=== PATIENT | female | born 1980 | race Two or more races ===

== ENCOUNTER 2018-06-09 20:21 | Observation (INO) | payer OTHER ==
[~2018-06-09] VITALS: Ht 162.6 cm; Wt 68.0 kg
[2018-06-09 21:20] LABS: BILIRUBIN,URINE NEGATIVE (NEG); CLARITY,URINE CLEAR; COLOR,URINE YELLOW; NITRITE,URINE NEGATIVE (NEG); PH,URINE 5.5; PROTEIN,URINE NEGATIVE (NEG-TRACE); UROBILINOGEN,URINE 0.2 mg/dL (0.2 mg/dL)
[2018-06-09 21:36] LABS: BASO % 0 % (0-3); EOS # 0.1 x10^3/uL (0.0-0.7); EOS % 2 % (0-3); HEMATOCRIT 38.4 % (36.0-47.0); HEMOGLOBIN 13.3 g/dL (12.0-15.5); LYMPH # 1.9 x10^3/uL (1.0-4.8); LYMPH % 24 % (24-48); MEAN CORPUSCULAR HEMOGLOBIN 28 pg (25-35); MEAN CORPUSCULAR HGB CONC 35 g/dL (31-37); MEAN CORPUSCULAR VOLUME 80 fL (79-100); MONO # 0.4 x10^3/uL (0.0-1.1); MONO % 5 % (0-9); NEUT # 5.6 x10^3uL (1.8-7.7); NEUT % 69 % (31-73); PLATELET COUNT 212 x10^3/uL (140-400); RED BLOOD COUNT 4.78 x10^6/uL (3.50-5.40); RED CELL DISTRIBUTION WIDTH 13.3 % (11.5-14.5); WHITE BLOOD COUNT 8.1 x10^3/uL (4.0-11.0)
--- NOTE | 2018-06-09 21:36 | PHYS DOC ---
Past Medical History Past Medical History: Hypertension Past Surgical History: Alcohol Use: None Drug Use: None Adult General Chief Complaint Chief Complaint: VAGINAL BLEEDING HPI HPI Patient is a 37 year old female who presents accompanied by with lower abd pain and vaginal bleeding. The patient reports her LMP was around May 18 and they normally run regularly every 26-28 days. She notes that around 3 weeks ago she began to have some dark brown vaginal spotting which she noticed after wiping following urination. Yesterday morning she began to experience lower/suprapubic abd pain which has been worsening since onset. She has not taken any pain medication. The patient contacted her PCP this AM who ordered a B-HCG and transvaginal ultrasounds. The HCG was noted to be positive and the Ultrasound impression performed at an outside facility noted: 1. No sonographic evidence of intrauterine gestation and 2. Possible right sided ectopic . Two findings are present in either one of these could be considered for an ectopic including a complex solid appearing masslike structure in the R adnexa/cul de sac measuring 3 cm and a thick walled 1.9 cm cyst with moderate ringlike peripheral blood flow in the ovary. Consider short interval follow up US evaluation and correlation with quant B-hcg analysis. Following the results of this testing she was referred to the ED. The patient does have a hx of ectopic around 10 years ago that was treated with Methotrexate, she is unsure of the side or the cause of the ectopic. 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 She denies nausea, vomiting, and SOB. No other Sx at this time. Interestingly she is from [place] and she came here in 2012. Review of Systems Review of Systems Constitutional: Denies fever or chills [] Eyes: Denies change in visual acuity, redness, or eye pain [] HENT: Denies nasal congestion or sore throat [] Respiratory: Denies cough or shortness of breath [] Cardiovascular: No additional information not addressed in HPI [] GI: + lower abd pain. Denies nausea, vomiting, bloody stools or diarrhea [] : + vaginal bleeding. Denies dysuria Musculoskeletal: Denies back pain or joint pain [] Integument: Denies rash or skin lesions [] Neurologic: Denies headache, focal weakness or sensory changes [] Endocrine: Denies polyuria or polydipsia [] All other systems were reviewed and found to be within normal limits, except as documented in this note. Current Medications Current Medications Current Medications Medications (Trade) Dose Ordered Sig/Benitez Start Time Stop Time Status Last Admin Dose Admin Methotrexate 88 mg 1X ONCE 06/09/18 23:00 06/09/18 23:01 UNV Allergies Allergies Allergies Coded Allergies Type Severity Reaction Last Updated Verified No Known Drug Allergies 06/09/18 No Physical Exam Physical Exam Constitutional: Well developed, well nourished, no acute distress, non-toxic appearance. [] HENT: Normocephalic, atraumatic, bilateral external ears normal, oropharynx moist, no oral exudates, nose normal. [] Eyes: PERRLA, EOMI, conjunctiva normal, no discharge. [] Neck: Normal range of motion, no tenderness, supple, no stridor. [] Cardiovascular:Heart rate regular rhythm, no murmur [] Lungs & Thorax: Bilateral breath sounds clear to auscultation [] Abdomen: + lower abd TTP, no rebound, rigidity or guarding. Bowel sounds normal , soft, no masses, no pulsatile masses. [] Skin: Warm, dry, no erythema, no rash. [] Back: No tenderness, no CVA tenderness. [] Extremities: No tenderness, no cyanosis, no clubbing, ROM intact, no edema. [] Neurologic: Alert and oriented X 3, normal motor function, normal sensory function, no focal deficits noted. [] Psychologic: Affect normal, judgement normal, mood normal. [] Current Patient Data Vital Signs Vital Signs Date Time Temp Pulse Resp B/P (MAP) Pulse Ox O2 Delivery O2 Flow Rate FiO2 06/09/18 20:45 98.0 93 19 133/78 (96) 100 Room Air 98.0 Lab Values Laboratory Tests Test 06/09/18 20:45 06/09/18 20:49 06/09/18 21:25 Urine Collection Type Void Urine Color Yellow Urine Clarity Clear Urine pH 5.5 Urine Specific [place] 1.015 Urine Protein Negative mg/dL (NEG-TRACE) Urine Glucose (UA) Negative mg/dL (NEG) Urine Ketones (Stick) Trace mg/dL (NEG) Urine Blood Large (NEG) Urine Nitrite Negative (NEG) Urine Bilirubin Negative (NEG) Urine Urobilinogen Dipstick 0.2 mg/dL (0.2 mg/dL) Urine Leukocyte Esterase Negative (NEG) Urine RBC Occ /HPF (0-2) Urine WBC 0 /HPF (0-4) Urine Squamous Epithelial Cells Few /LPF Urine Bacteria Moderate /HPF (0-FEW) POC Urine HCG, Qualitative Hcg positive (Negative) White Blood Count 8.1 x10^3/uL (4.0-11.0) Red Blood Count 4.78 x10^6/uL (3.50-5.40) Hemoglobin 13.3 g/dL (12.0-15.5) Hematocrit 38.4 % (36.0-47.0) Mean Corpuscular Volume 80 fL (79-100) Mean Corpuscular Hemoglobin 28 pg (25-35) Mean Corpuscular Hemoglobin Concent 35 g/dL (31-37) Red Cell Distribution Width 13.3 % (11.5-14.5) Platelet Count 212 x10^3/uL (140-400) Neutrophils (%) (Auto) 69 % (31-73) Lymphocytes (%) (Auto) 24 % (24-48) Monocytes (%) (Auto) 5 % (0-9) Eosinophils (%) (Auto) 2 % (0-3) Basophils (%) (Auto) 0 % (0-3) Neutrophils # (Auto) 5.6 x10^3uL (1.8-7.7) Lymphocytes # (Auto) 1.9 x10^3/uL (1.0-4.8) Monocytes # (Auto) 0.4 x10^3/uL (0.0-1.1) Eosinophils # (Auto) 0.1 x10^3/uL (0.0-0.7) Basophils # (Auto) 0.0 x10^3/uL (0.0-0.2) Prothrombin Time 13.5 SEC (11.7-14.0) Prothrombin Time INR 1.1 (0.8-1.1) Maternal Serum HCG Beta Subunit 2543 mIU/mL (0-5) H Sodium Level 140 mmol/L (136-145) Potassium Level 3.0 mmol/L (3.5-5.1) L Chloride Level 101 mmol/L (98-107) Carbon Dioxide Level 28 mmol/L (21-32) Anion Gap 11 (6-14) Blood Urea Nitrogen 12 mg/dL (7-20) Creatinine 0.6 mg/dL (0.6-1.0) Estimated GFR (Cockcroft-Gault) 111.9 BUN/Creatinine Ratio 20 (6-20) Glucose Level 146 mg/dL (70-99) H Calcium Level 9.6 mg/dL (8.5-10.1) Total Bilirubin 0.4 mg/dL (0.2-1.0) Aspartate Amino Transferase (AST) 14 U/L (15-37) L Alanine Aminotransferase (ALT) 23 U/L (14-59) Alkaline Phosphatase 59 U/L (46-116) Total Protein 7.9 g/dL (6.4-8.2) Albumin 4.0 g/dL (3.4-5.0) Albumin/Globulin Ratio 1.0 (1.0-1.7) Laboratory Tests 06/09/18 21:25 Laboratory Tests 06/09/18 21:25 EKG EKG [] Radiology/Procedures Radiology/Procedures US Pelvis done at outside facility DONE TODAY 06/09 1. No sonographic evidence of intrauterine gestation 2. Possible right sided ectopic . Two findings are present in either one of these could be considered for an ectopic including a complex solid appearing masslike structure in the R adnexa/cul de sac measuring 3 cm and a thick walled 1.9 cm cyst with moderate ringlike peripheral blood flow in the ovary. Consider short interval follow up US evaluation and correlation with quant B-hcg analysis.` ULTRASOUND DONE HERE Findings: Transvaginal pelvic ultrasound exam was performed. Transabdominal imaging was also performed. Transvaginal technique was utilized to better assess the adnexal structures. Uterus measures 9.7 cm x 5.16 x 4.7 cm. Myometrium is unremarkable. Cervical length is 4.4 cm. No intrauterine gestational sac identified. Complex pelvic free fluid is present. Right adnexa measures 1.17 x 1.3 cm x 2 cm. Right adnexal follicle measuring 0.7 cm diameter is present. Normal right ovarian flow is evident on color Doppler imaging. There is a complex heterogeneously hyperechoic mass medial to the right ovary measuring 4.9 x 2.5 cm x 3.1 cm. Left ovary measures 2.2 cm x 2.5 cm x 1.4 cm. Impression: Right adnexal region complex mass. Ectopic gestation is of concern as no intrauterine gestation is identified. Associated complex pelvic free fluid. Electronically signed by: García Choudhary MD (06/09/2018 10:32 PM) [facility] DICTATED and SIGNED BY: REILLY CAMARGO MD DATE: 06/09/182225 Course & Med Decision Making Course & Med Decision Making Pertinent Labs and Imaging studies reviewed. (See chart for details) Assessment: 37 y/o female presents with lower abd pain and vaginal spotting 1. ectopic Plan labs UA B-HCG repeat Pelvic US Blood type consult [employer] I discussed with Dr. Ash at 11 PM we reviewed the case specifically reviewed the beta hCG number of the vital signs reviewed in detail the pelvic ultrasound findings including the size as well as the pelvic free fluid however no other abdominal fluid is identified clinically or on ultrasound. Dr. Ash feels that the patient is a candidate for methotrexate. We agree we will admit the patient overnight to his service for observation. I discussed in detail with the patient the risks and benefits of methotrexate and she does consent to in fact she did strongly prefer methotrexate as she had a good outcome with it last time. Patient is comfortable with the plan. Hemoglobin normal Rh+. Admit for observation. Methotrexate was ordered in the emergency room 50 mg/m and I called the pharmacist to confirm the dose. Dragon Disclaimer Dragon Disclaimer This electronic medical record was generated, in whole or in part, using a voice recognition dictation system. Departure Departure Impression: Primary Impression: Ectopic Disposition: ADMITTED INPATIENT Admitting Physician: Other Condition: STABLE Referrals: ANIL SALDANA (PCP) JALEESA ROSE MD Jun 09, 2018 21:36
[2018-06-09 21:37] LABS: BACTERIA,URINE MODERATE /HPF (0-FEW); RBC,URINE OCC /HPF (0-2); SQUAMOUS EPITHELIAL CELL,UR FEW /LPF; WBC,URINE 0 /HPF (0-4)
[2018-06-09 21:42] LABS: CALCIUM 9.6 mg/dL (8.5-10.1); CREATININE 0.6 mg/dL (0.6-1.0); GFR 111.9
[2018-06-09 21:44] LABS: PROTHROMBIN TIME PATIENT 13.5 SEC (11.7-14.0)
[2018-06-09 21:48] LABS: TOTAL BILIRUBIN 0.4 mg/dL (0.2-1.0); TOTAL PROTEIN 7.9 g/dL (6.4-8.2)
--- NOTE | 2018-06-09 22:35 | RAD ---
Examination: OB <14 WKS W/TV History: pain, spotting, pos urine preg test
prev ectopic

no iup or gs seen
complex ff
med to ro solid mass with blood flow suspicious for ectopic
beta not back yet Comparison/Correlation: None Findings: Transvaginal pelvic ultrasound exam was performed. Transabdominal imaging was also performed. Transvaginal technique was utilized to better assess the adnexal structures. Uterus measures 9.7 cm x 5.16 x 4.7 cm. Myometrium is unremarkable. Cervical length is 4.4 cm. No intrauterine gestational sac identified. Complex pelvic free fluid is present. Right adnexa measures 1.17 x 1.3 cm x 2 cm. Right adnexal follicle measuring 0.7 cm diameter is present. Normal right ovarian flow is evident on color Doppler imaging. There is a complex heterogeneously hyperechoic mass medial to the right ovary measuring 4.9 x 2.5 cm x 3.1 cm. Left ovary measures 2.2 cm x 2.5 cm x 1.4 cm. Impression: Right adnexal region complex mass. Ectopic gestation is of concern as no intrauterine gestation is identified. Associated complex pelvic free fluid. Electronically signed by: García Choudhary MD (06/09/2018 10:32 PM) [facility]
[2018-06-09] MEDS: MORPHINE SULFATE 4 MG/ML VIAL. IV PRN (23:16)
[2018-06-09] MEDS: ONDANSETRON PF 4 MG/2 ML VIAL. IV PRN (23:16)
[2018-06-09] MEDS ORDERED: METHOTREXATE SODIUM 50 MG/2 ML VIAL IM ONE (23:45)
[2018-06-10] MEDS ORDERED: IV RINGERS,LACTATED 1000ML 1,000 ML IV SCH (00:30)
[2018-06-10 00:34] VITALS: BP 104/71
[2018-06-10 05:13] LABS: BASO % 0 % (0-3); EOS # 0.2 x10^3/uL (0.0-0.7); EOS % 3 % (0-3); HEMATOCRIT 34.3 % (36.0-47.0); HEMOGLOBIN 12.2 g/dL (12.0-15.5); LYMPH # 2.3 x10^3/uL (1.0-4.8); LYMPH % 33 % (24-48); MEAN CORPUSCULAR HEMOGLOBIN 29 pg (25-35); MEAN CORPUSCULAR HGB CONC 36 g/dL (31-37); MEAN CORPUSCULAR VOLUME 81 fL (79-100); MONO # 0.5 x10^3/uL (0.0-1.1); MONO % 6 % (0-9); NEUT # 4.1 x10^3uL (1.8-7.7); NEUT % 58 % (31-73); PLATELET COUNT 205 x10^3/uL (140-400); RED BLOOD COUNT 4.23 x10^6/uL (3.50-5.40); RED CELL DISTRIBUTION WIDTH 13.2 % (11.5-14.5); WHITE BLOOD COUNT 7.1 x10^3/uL (4.0-11.0)
[2018-06-10 06:08] VITALS: BP 102/57
[2018-06-10] MEDS: ONDANSETRON PF 4 MG/2 ML VIAL. IV PRN (07:38)
[2018-06-10] MEDS: MORPHINE SULFATE 4 MG/ML VIAL. IV PRN (07:38)
[2018-06-10 09:29] VITALS: BP 104/67
[2018-06-10 15:30] VITALS: BP 101/56
--- NOTE | 2018-06-10 15:37 | PDOC1 ---
OB - History Hx of Present Care: Limited Care Ultrasounds: Abnormal US findings (ectopic) Medical Complications: None Past Family/Social History * Past Medical, Surgical, Family and Obstetric Histories reviewed from chart. Blood Type: O+ Rubella: Immune RPR/VDRL: Negative HBsAG: Negative OB - Chief Complaint & HPI Date of Admission: Date of Admission: Jun 09, 2018 at 23:00 Chief Complaint/History : 2 Para: 2 EDC: Feb 22, 2019 EGA: 3/2 Reason for admission: vaginal bleeding Admission Nurse Assessment Rev: Yes OB - Admission Exam Physical Exam Vitals: VS - Last 72 Hours, by Label Date Time Temp Pulse Resp B/P (MAP) Pulse Ox O2 Delivery O2 Flow Rate FiO2 06/10/18 09:29 98.3 94 16 104/67 (79) 100 Room Air 98.3 06/10/18 06:08 98.4 84 20 102/57 (72) 99 Room Air 98.4 06/10/18 00:34 98.0 20 104/71 (82) 98 Room Air 98.0 06/09/18 23:30 83 18 101/58 (72) 100 Room Air 06/09/18 23:16 16 100 Room Air 06/09/18 23:00 82 18 95/55 (68) 99 Room Air 06/09/18 22:30 92 18 99/53 (68) 98 Room Air 06/09/18 22:00 91 19 101/55 (70) 100 Room Air 06/09/18 21:30 94 18 112/57 (75) 100 Room Air 06/09/18 21:00 95 18 133/78 (96) 100 Room Air 06/09/18 20:45 98.0 93 19 133/78 (96) 100 Room Air 98.0 HEENT: Normal, Nasal Mucosa Normal, Oropharynx Normal, Moist Membranes, Fontanelles Normal Heart: Regular Rate Lungs: Clear, Equal Abdomen: Tender (RLQ) Extremities: Normal Pulses, No tenderness or swelling Reflexes: Normal Cervical Dilatation: None Assessment/Plan Assessment/Plan R ectopic MTX therapy RASHEED VILLARREAL MD Jun 10, 2018 15:37
--- NOTE | 2018-06-10 22:23 | DS ---
DATE OF DISCHARGE: 06/10/2018 ADMISSION DIAGNOSIS: Abdominal pain, right ectopic . DISCHARGE DIAGNOSIS: Abdominal pain, right ectopic . PROCEDURE: Methotrexate therapy. HOSPITAL COURSE: The patient was admitted for observation. Since the lateness of her entering into the hospital, she received her first methotrexate shot around 10:00 p.m. on 06/09/2018. Through the night, the patient's pain was well controlled. No vaginal bleeding. No complaints of increase in discomfort. At the time I saw her, she is resting comfortably. I had a long conversation with her and her . I discussed the mechanism of the methotrexate injections, its mechanism of action and what to expect. The patient was told that if anything changes, any increased pain, sharp pain, dull pain, abdominal distention, she is to call my office or return to the hospital ER as soon as possible. Routine discharge instructions were given. The patient is to follow up with me next . While I am gone, she was informed that Dr. Olivarez will be covering for me and he will be made aware of her ectopic and condition. She is to follow up with me as I pointed out on next . DISCHARGE MEDICATION: None. The patient also received prescriptions to have her quant drawn on Wednesday and Wednesday of next week. RASHEED VILLARREAL MD DR: REGAN/kathie JOB#: [id number] / [id number]
== END 2018-06-10 18:00 | disposition home or self-care (01) ==
LOC: ER 20:21 → 3 NORTH 23:00
PROVIDERS: ADMIT Specialist; ATTEND Specialist
DX: O00.101 Right tubal pregnancy without intrauterine pregnancy (principal); O46.90 Antepartum hemorrhage, unspecified, unspecified trimester; Z98.891 History of uterine scar from previous surgery
CPT/HCPCS: 36415; 76801; 76817; 80053; 81001; 81025; 84702; 85025; 85610; 86900; 86901; 87086; 96372; 96374; 96375; 96376; 99284; G0378; J2270; J2405; G0379; J7120

== ENCOUNTER → 2018-06-13 | Outpatient (CLI) | payer OTHER ==
[2018-06-10 15:30] VITALS: BP 101/56
== END | disposition home or self-care (01) ==
LOC: LAB 19:39
PROVIDERS: ATTEND Specialist
DX: Z79.899 Other long term (current) drug therapy (principal)
CPT/HCPCS: 36415; 84702